=== PATIENT | female | born 1980 | race Two or more races ===

== ENCOUNTER 2017-03-31 08:51 | Emergency (ER) | payer OTHER ==
[~2017-03-31] VITALS: Ht 160 cm; Wt 59.0 kg
[2017-03-31 09:03] VITALS: BP 139/92
--- NOTE | 2017-03-31 09:07 | NUR ---
PT TAKEN TO BED 8.
--- NOTE | 2017-03-31 09:23 | NUR ---
Patient being evaluated by physician at bedside.
[2017-03-31] MEDS: ACETAMIN/CODEINE 120/12MG-5ML 5 ML UDC PO ONE (09:25)
[2017-03-31] MEDS: DEXAMETHASONE 4 MG/ML VIAL PO ONE (09:26)
--- NOTE | 2017-03-31 09:31 | NUR ---
36/F presents to ED for evaluation of throat pain x 3 days starting on wednesday. Patient c/o worsening pain with swallowing. Patient denies fever or chills. Patient is AOX4, ind[place]ian speaking. VSS.
[2017-03-31] MEDS: PENICILLIN G BENZATHINE L-A 2.4 MU/4 ML SYR IM ONE (09:33)
[2017-03-31 09:42] VITALS: BP 139/92
--- NOTE | 2017-03-31 09:43 | NUR ---
Patient discharged with v/s stable. Written and verbal after care instructions given and explained. Patient alert, oriented and verbalized understanding of instructions. Ambulatory with steady gait. All questions addressed prior to discharge. ID band removed. Patient advised to follow up with PMD. Rx of MEDROL DOSE PACK, TYLENOL WITH CODEINE given. Patient educated on indication of medication including possible reaction and side effects. Opportunity to ask questions provided and answered.
== END 2017-03-31 09:43 | disposition home or self-care (01) ==
LOC: MED 08:52
DX: J02.0 Streptococcal pharyngitis (principal); Z88.2 Allergy status to sulfonamides
CPT/HCPCS: 87081; 96372; 99284; J0561; J1100

== ENCOUNTER 2017-12-31 11:04 | Emergency (ER) | payer OTHER ==
[~2017-12-31] VITALS: Ht 160 cm; Wt 60.3 kg
[2017-12-31 11:09] VITALS: BP 125/59
[2017-12-31] MEDS ORDERED: ACETAMINOPHEN EXTRA STRENGTH 500 MG TAB ONE (11:22)
--- NOTE | 2017-12-31 12:56 | NUR ---
Influenza swab collected and sent to lab.
--- NOTE | 2017-12-31 13:00 | NUR ---
Lights dimmed in room, comfort needs met.
[2017-12-31] MEDS ORDERED: IBUPROFEN 600 MG TAB PO ONE (13:45)
--- NOTE | 2017-12-31 13:55 | NUR ---
EXAMINED BY ED MD THEN MOTRIN ORDERED AND GIVEN.
--- NOTE | 2017-12-31 14:13 | NUR ---
Patient discharged with v/s stable. Written and verbal after care instructions given and explained. Patient alert, oriented and verbalized understanding of instructions. Ambulatory with steady gait. All questions addressed prior to discharge. ID band removed. Patient advised to follow up with PMD. Rx of TAMIFLU, IBUPROFEN AND GUAFENESIN given. Patient educated on indication of medication including possible reaction and side effects. Opportunity to ask questions provided and answered.
[2017-12-31 14:15] VITALS: BP 134/76
== END 2017-12-31 14:13 | disposition home or self-care (01) ==
LOC: MED 11:04
DX: J11.1 Influenza due to unidentified influenza virus with other respiratory manifestations (principal); Z88.2 Allergy status to sulfonamides
CPT/HCPCS: 36415; 81002; 81025; 87804; 99284

== ENCOUNTER 2019-12-04 14:39 | Emergency (ER) | payer OTHER ==
[~2019-12-04] VITALS: Ht 157.5 cm; Wt 59.0 kg
--- NOTE | 2019-12-04 14:50 | NUR ---
PT AMBULATED TO BED 01.
[2019-12-04 14:54] VITALS: BP 152/69
--- NOTE | 2019-12-04 14:55 | NUR ---
URINE CUP HANDED TO PT FOR SAMPLE
--- NOTE | 2019-12-04 15:12 | NUR ---
39/F BIB SELF C/O AWOKE TODAY WITH PRESSURE TYPE HEADACHE WITH NAUSEA AND DIZZINESS. DENIES INJURY. PATIENT STATES PAIN OF 9/10 AT THIS TIME. PATIENT POSITIONED FOR COMFORT; HOB ELEVATED; BEDRAILS UP X1; BED DOWN. ER MD MADE AWARE OF PT STATUS.
[2019-12-04] MEDS ORDERED: KETOROLAC 60 MG/2 ML VIAL IM ONE (15:20)
[2019-12-04 15:41] LABS: APPEARANCE,URINE CLEAR (CLEAR); BILIRUBIN,URINE NEGATIVE (NEGATIVE); BLOOD, URINE 2+ (NEGATIVE); COLOR,URINE OTHER (YELLOW); LEUKOCYTE ESTERASE ,URINE NEGATIVE (NEGATIVE); NITRITE, URINE NEGATIVE (NEGATIVE); PH,URINE 6.5 (5.0-9.0); UGLUCOSE NEGATIVE (NEGATIVE)
[2019-12-04 15:52] LABS: BARBITURATE, URINE NEG. ng/ml (NEG <=200); BENZODIAZEPINE, URINE NEG. ng/mL (NEG <=200); CANNABINOID, URINE NEG. ng/mL (NEG <=50); COCAINE, URINE NEG. ng/mL (NEG <=300); OPIATE, URINE NEG. ng/mL (NEG <=2000); PHENCYCLIDINE SCREEN,URINE NEG. ng/mL (NEG <=25)
[2019-12-04 16:17] LABS: WBC,URINE NONE SEEN /HPF (0-5); YEAST,URINE None Seen /HPF (None Seen)
[2019-12-04 17:03] VITALS: BP 132/64
--- NOTE | 2019-12-04 17:03 | NUR ---
Patient discharged with v/s stable. Written and verbal after care instructions given and explained. Patient alert, oriented and verbalized understanding of instructions. Ambulatory with steady gait. All questions addressed prior to discharge. ID band removed. Patient advised to follow up with PMD. Rx of FIORICET & PROMETHAZINE DM given. Patient educated on indication of medication including possible reaction and side effects. Opportunity to ask questions provided and answered.
== END 2019-12-04 17:03 | disposition home or self-care (01) ==
LOC: MED 14:39
DX: R51 Headache (principal); R50.9 Fever, unspecified; Z88.2 Allergy status to sulfonamides
CPT/HCPCS: 70450; 80305; 81001; 81025; 87804; 96372; 99284; J1885

== ENCOUNTER 2020-11-06 07:32 | Emergency (ER) | payer OTHER ==
[~2020-11-06] VITALS: Ht 157.5 cm; Wt 62.6 kg
[2020-11-06 08:15] VITALS: BP 135/81
--- NOTE | 2020-11-06 08:17 | NUR ---
Magdalena sheridan in [facility] - 11/06/20 at 0818 by [facility] PT SENT TO [facility] TO WAIT FOR A BED.
--- NOTE | 2020-11-06 08:17 | NUR ---
PT PLACED IN CHAIR A.
[2020-11-06] MEDS ORDERED: KETOROLAC 60 MG/2 ML VIAL IM ONE (08:25)
[2020-11-06 09:05] VITALS: BP 135/81
--- NOTE | 2020-11-06 09:05 | NUR ---
Patient discharged with v/s stable. Written and verbal after care instructions given and explained. Patient alert, oriented and verbalized understanding of instructions. Ambulatory with steady gait. All questions addressed prior to discharge. ID band removed. Patient advised to follow up with PMD. Rx of Motrin 600mg, Newborn 5mg-325mg given. Patient educated on indication of medication including possible reaction and side effects. Opportunity to ask questions provided and answered.
== END 2020-11-06 09:05 | disposition home or self-care (01) ==
LOC: MED 07:32
DX: M25.511 Pain in right shoulder (principal); Z88.2 Allergy status to sulfonamides
CPT/HCPCS: 96372; 99283; J1885